=== PATIENT | female | born 1970 | race Caucasian/White ===

== ENCOUNTER 2016-07-11 13:56 | Emergency (ER) | payer OTHER ==
[~2016-07-11] VITALS: Ht 167.6 cm; Wt 69.5 kg
[2016-07-11 14:11] VITALS: BP 142/87; PULSE 77; RESP 16; O2SAT 97
--- NOTE | 2016-07-11 16:12 | ED.REPORT ---
HPI- Female Date of Service July 11, 2016 ED Provider: Bradley Tucker MD Patient is a 45 year old female with a hx of endometriosis, hypothyroid, and fibromyalgia who presents to the ED complaining of vaginal bleeding with "plum sized clots" onset 4 days ago s/p having a benign, 5 cm uterine mass biopsied 12 days ago. She reports that she started her period 4 days ago but that it normally lasts only 2 days. Associated symptoms include intermittent back pain that correlates with the passing of a clot. She denies lightheadedness, fever, vomiting, or any other symptoms. She has been using overnight pads and has been filling them in less than 3 hours. She is scheduled for a hysterectomy August 09. She has been under a lot of stress lately. Nursing Notes Stated Complaint: BLEEDING POST PROCEDURE Chief Complaint: Female Abdominal Pain Nursing Notes Reviewed: Yes Allergies: Coded Allergies: oxycodone (Verified Allergy, Severe, 12/23/08) Sulfa (Sulfonamide Antibiotics) (Verified Allergy, Unknown, 03/29/14) Scheduled Medroxyprogesterone Acetate (Provera) 10 Mg Tablet 10 MG PO DAILY Scheduled PRN Promethazine (Promethazine) 25 Mg Tablet 25 MG PO Q6H PRN PRN For Nausea General Time Seen by MD: 16:11 Chief Complaint Vaginal bleeding... (Moderate) Hx Obtained From: Patient Arrived By: Walk-in Sudden in Onset?: Yes Onset Occurred: 4 days ago Symptom Duration: Since onset Past Medical History Past Medical History endometriosis Hypothyroid fibromyalgia Excessive cyclical bleeding Reports: GERD Past Surgical History thyroidectomy cyst removal from chest. D&C Smoking History Never Smoker Social History Alcohol Use: Denies alcohol use Drug Use: THC Occupation [employer] Instructor Ambulatory Status Independent Review of Systems Constitutional: Denies: Fever GI: Denies: Vomiting Female: Reports: Vaginal bleeding - abnl Musculoskeletal: Reports: Back pain Neurologic: Denies: Lightheaded Complete sys rev & neg: except as marked. Physical Exam Physical Exam Notes: Sitting: BP: 122/70 HR: 60 Standing: BP: 130/70 HR: 65 Initial Vital Signs Vital Signs (First) Date Time Temp Pulse Resp B/P Pulse Ox O2 Delivery O2 Flow Rate FiO2 07/11/16 14:11 36.8 77 16 142/87 97 Room Air Initial VS: Reviewed Head / Eyes: Atraumatic, Normocephalic Neck: Full range of motion Neurologic: Alert, Oriented, Nonfocal Psychiatric: Mood/affect normal, Behavior normal, Normal thought content Female Genitourinary: Exam deferred General/Constitutional: Awake, Alert, Well developed Respiratory / Chest: Breath sounds NL, Breath sounds = bilat, No respiratory distress Cardiovascular: Heart rate NL, Regular rhythm, Heart sounds NL, No gallop, No murmurs, No rubs Abdomen: Soft Tenderness/Guarding/Rebound: Positive: Tender diffuse Skin: Color NL, Warm, Dry Interpretation & Diagnostics Lab Results Interpretation Result Diagram: 07/11/16 1605 Test 07/11/16 16:05 White Blood Count 6.9th/mm3 (3.8-10.1) Red Blood Count 4.18mil/mm3 (3.90-5.20) Hemoglobin 12.5g/dL (12.0-15.6) Hematocrit 36.8% (35.0-46.0) Mean Corpuscular Volume 88.0fL (81-100) Mean Corpuscular Hemoglobin 29.9pg (27.0-35.0) Mean Corpuscular Hemoglobin Concent 34.0% (32.0-37.0) Red Cell Distribution Width 12.0% (12.3-15.4) Platelet Count 241bil/L (150-400) Neutrophils (%) (Auto) 69.3% (40-74) Lymphocytes (%) (Auto) 21.9% (14-46) Monocytes (%) (Auto) 6.5% (4-12) Eosinophils (%) (Auto) 2.2% (0-5) Basophils (%) (Auto) 0.1% (0-3) Hold Reich Top Tube Received (Received) Re-Eval/Medical Decision Re-Evaluation/Progress : Time of Eval: 16:33 Patient Status: Condition unchanged Re-Evaluation/Progress Note: Review discharge instructions. Patient understands and agrees with plan. Patient has no questions at this time. Consultation : Call Returned at: 16:31 Motor Vehicle Technician: Agrees with eval, Agrees with plan Note: Discussed pt case with credit collections rep for pt PCP. Provera 10 mg/ day Counseled Regarding: Diagnosis, Lab results, Need for follow-up, When/why to return to ED Discharge & Departure Impression: Primary Impression: Dysfunctional uterine bleeding Disposition: Home Discharge Condition All VS Reviewed: Yes Condition: Improved Patient Instructions: Dysfunctional Uterine Bleeding (ED) Additional Instructions: Thank you for entrusting us with your care today. Your labs and examination are reassuring. Take Provera, 10 mg a day. Promethazine as needed for nausea. Referrals: Asa Felix DO (PCP) Scribe Attestation Portions of this note were transcribed by Cresencio Aburto. I, Dr. Tucker personally performed the history, physical exam and medical decision-making; I reviewed and confirmed the accuracy of the information in the transcribed note. Signed by: Cresencio Aburto 07/11/16, [id number] copies to: Asa Felix Kirk H MD July 11, 2016 16:12 CRESENCIO ABURTO July 11, 2016 16:18
[2016-07-11 16:27] LABS: BASOPHILS % (AUTO) 0.1 % (0-3); EOSINOPHILS % (AUTO) 2.2 % (0-5); MONOCYTES % (AUTO) 6.5 % (4-12); Mean Corpuscular Hemoglobin 29.9 pg (27.0-35.0); NEUTROPHILS % (AUTO) 69.3 % (40-74); Platelet Count 241 bil/L (150-400)
[2016-07-11] MEDS ORDERED: MEDR10TA PO (16:38)
[2016-07-11] MEDS ORDERED: PROM25TA14 PO (17:56)
[2016-08-08] MEDS ORDERED: HYDR2TAB28 PO (11:08)
[2016-08-08] MEDS ORDERED: RANI150C4 PO (11:08)
[2016-08-08] MEDS ORDERED: IBUP-1827 PO (11:08)
[2016-08-08] MEDS ORDERED: LEVO112T3 PO (11:08)
[2016-08-08] MEDS ORDERED: MEDR10TA9 PO (11:08)
[2016-08-08] MEDS ORDERED: HYDR-3605 PO (11:08)
[2016-08-08] MEDS ORDERED: PROM25TA14 PO (11:08)
[2016-08-08] MEDS ORDERED: DIPH25CA6 PO (11:08)
== END 2016-07-11 17:09 | disposition home or self-care (01) ==
LOC: SED 13:56
DX: N93.8 Other specified abnormal uterine and vaginal bleeding (principal); M54.9 Dorsalgia, unspecified; N80.9 Endometriosis, unspecified; E03.9 Hypothyroidism, unspecified; M79.7 Fibromyalgia; K21.9 Gastro-esophageal reflux disease without esophagitis; Z98.890 Other specified postprocedural states; Z88.5 Allergy status to narcotic agent; Z88.2 Allergy status to sulfonamides

== ENCOUNTER 2016-08-09 07:39 | Day surgery (SDC) | payer OTHER ==
[2016-08-09] VITALS (11 sets, daily range): BP systolic 115–137; BP diastolic 63–79; PULSE 56–65; RESP 12–18; O2SAT 94–100
[~2016-08-09] VITALS: Ht 167.6 cm; Wt 69.1 kg
[~2016-08-09 07:39] MED LIST: CeFAZolin Inj 2 GM in IV Premix 1 EACH IV ONE; DIPH25CA6 PO; HYDR-3605 PO; HYDR2TAB28 PO; IBUP-1827 PO; LEVO112T3 PO; MEDR10TA9 PO; PROM25TA14 PO; RANI150C4 PO
[2016-08-09] MEDS ORDERED: Dexamethasone 4 mg/mL Inj ONE (07:40)
[2016-08-09] MEDS ORDERED: fentaNYL-PF 50 mCg/mL 2 mL Inj ONE (07:40)
[2016-08-09] MEDS ORDERED: Propofol 10,000 mCg/mL 20 mL Inj ONE (07:40)
[2016-08-09] MEDS ORDERED: MetoCLOpramide 5 mg/mL 2 mL Inj ONE (07:40)
[2016-08-09] MEDS ORDERED: Neostigmine 1 mg/mL 10 mL Inj ONE (07:40)
[2016-08-09] MEDS ORDERED: Lidocaine PF 1% 30 mL Inj ONE (07:40)
[2016-08-09] MEDS ORDERED: Esmolol 10,000 mCg/mL 10 mL Inj ONE (07:40)
[2016-08-09] MEDS ORDERED: Glycopyrrolate 0.2 MG/ML 1mL Inj ONE (07:40)
[2016-08-09] MEDS ORDERED: Ondansetron 2 mg/mL 2 mL Inj ONE (07:40)
[2016-08-09] MEDS ORDERED: HYDROmorphone 2 mg/mL Inj ONE (07:40)
[2016-08-09] MEDS: Lactated Ringer's 1,000 ML IV SCH ×2 (07:53→09:16)
[2016-08-09] MEDS ORDERED: LORA10CA PO (08:14)
--- NOTE | 2016-08-09 09:16 | PCM.HPANE ---
Patient Data Date of Service: Aug 09, 2016 Surgeon Admitting Provider: Attending Provider:Ree Ross MD Primary Care Physician:Asa Felix DO Other Provider:Slim Martins Anesthesia Reason for Visit Abnormal Uterine Bleeding Ht/WT & BMI Height (Feet): 5 Height (Inches): 6 Weight (Kilograms): 69.1 Body Mass Index 24.00 Allergies Coded Allergies: oxycodone (Verified Allergy, Severe, 12/23/08) Sulfa (Sulfonamide Antibiotics) (Verified Allergy, Unknown, 03/29/14) Uncoded Allergies: SEASONAL (Allergy, Unknown, 08/08/16) Past Anesthesia History Anesthesia History: Positive for:: Anesthesia Reactions (severe nausea, has awoken during anes, ), Denies:: Abnormal Airway, Difficult Intubation, Fam Anesthesia Reaction, Fam Malignant Hypertherm, Malignant Hyperthermia Diabetes History Hx Diabetes?: No MRSA MRSA: Yes ( ) Medications Hypertension Medication: No Home Meds Incl Beta Brock: No Reported Medications Loratadine (Claritin)10 Mg Vtbmypx21 Mg PO DAILY Ref 0 08/09/16 Levothyroxine (Synthroid)112 Mcg Pohwkw987 Mcg PO DAILY Ref 0 08/08/16 Ranitidine 150 Mg Srlpjdx321 Mg PO BID Ref 0 08/08/16 Promethazine 25 Mg Iijawa01 Mg PO Q4H PRN For Nausea Ref 0 08/08/16 Medroxyprogesterone 10 Mg Ngxngz88 Mg PO DAILY 08/08/16 Ibuprofen 600 Mg Boblmr871 Mg PO QID PRN For Pain Ref 0 08/08/16 HydrOXYzine HCl 10 Mg Zyxeqq97 Mg PO TID PRN For Itching Ref 0 08/08/16 Hydromorphone 2 Mg Tablet2-4 Mg PO Q4H PRN Pain Ref 0 08/08/16 diphenhydrAMINE HCl (Benadryl)25 Mg Gcdvmaz65-16 Mg PO Q4 PRN allergy sx Ref 0 08/08/16 Discontinued Scripts Promethazine 25 Mg Ykbwcs91 Mg PO Q6H PRN For Nausea #25 TABLET Ref 0 Prov:Bradley Tucker MD 07/11/16 Medroxyprogesterone Acetate (Provera)10 Mg Ovlhew66 Mg PO DAILY #30 TABLET Prov:Bradley Tucker MD 07/11/16 History History of ENT Problems?: Yes HEENT History: Positive for:: Sinus Problem (chronic allergies) Denies:: Abnormal Airway Cataracts Difficult Intubation Dysphagia Glaucoma Hearing Problem Denture Type: None Teeth Condition: Within Normal Limits Hx of Heart Problems?: Yes Cardiovascular History: Positive for:: Irregular Heartbeat (palpitations thyroid) Denies:: AICD Abdominal Aortic Aneurism Chest Pain Congestive Heart Failure Coronary Artery Disease Edema Heart Murmur Hypertension Pacemaker Peripheral Vascular Rheumatic Fever Thrombophlebitis Valvular Heart Disease Hx of Respiratory Problem?: Yes Respiratory History: Positive for:: Asthma (as child) Cough (hx bronchitis sep 2015- still coughs occasionally productive) Use of C-PAP Machine Denies:: COPD Emphysema Oxygen Administration Pneumonia Pulmonary Embolism Tuberculosis Use of Inhalers / NEBS Hx Neurologic Problems?: Yes Neurological History: Positive for:: Headaches (2-4 times month - tylenol with caffeine) Denies:: CVA (memory loss post thryoidectomy-attributes ) Dementia Dizziness Multiple Sclerosis Parkinson's Disease Seizures Other Neurological Pertinent: bells palsy- 2011 right sided, resolved. Hx of GI Problems?: Yes Hx of Problems?: No Genitourinary History: Positive for:: Kidney Stones (left renal tube (has had for 15 years) ) Denies:: Urinary Tract Infection Female Hx: Positive for:: Problems with Breasts? (sebaceous cyst- ( center ), breast reduction) Denies:: Currently (neg test) Skin History: Denies:: History Skin Disorders? Pressure Ulcers Hx Musculoskeletal Problems?: Yes Musculoskeletal History: Positive for:: Fibromyalgia Osteoarthritis Denies:: Musculoskeletal Trauma Myasthenia Gravis Systemic Lupus Hx of Psycho/Social Problems?: Yes Psycho Social History: Positive for:: Anxiety Hx Surgeries?: Yes (thyroid, breast redux, laparoscopy) Hx Any Other Health Problems?: Yes Other History: Positive for:: Cancer (skin, cervical, ) Thyroid Disease (thyroidectomy- full) History Blood Transfusions: Positive for:: Accept Blood Products? Denies:: Blood Transfusions Hx Diabetes: No Hx Alcohol Use: NoHx Substance Use: Yes (medical marijuana- inhale, topical and edible- weekly) Smoking Status: Never Smoker Have You Smoked inLast 12 mo: No Stop/Bang Treated for Sleep Apnea?: Yes Do You Have a CPAP Machine?: Yes S-Snoring: Do You Snore Loudly: Yes T-Tired: feel tired, fatigued: Yes O-Obsered: Observed not breath: Yes P-Blood Pressure: treated: No B- Body Mass Index > 35 kg/m2: No A- Age over 50: No N- Neck Large Circumference: No G- Gender Male: No CASTRO Total Score: 3 CASTRO Risk Assessment: High Risk, =/>3 Yes CASTRO Category 4 OutPt Procedure: Yes Risk Assessment Category Category 1A: Patient has history of documented sleep apnea, and HAS NOT received any narcotic, sedative or anesthesia administration during this stay. Category 1B: Patient has history of documented sleep apnea, and HAS received any narcotic , sedative or anesthesia administration during this stay Category 2: Patient has SUSPECTED Obstructive Sleep Apnea, and HAS received any narcotic , sedative or anesthesia administration during this stay. Category 3: Patient has SUSPECTED Obstructive Sleep Apnea and HAS NOT received narcotic, sedative or anesthesia administration during this stay. Category 4: Outpatient in Procedural Areas with known sleep apnea or who screen positive for High Risk via the STOP/BANG questionnaire. Exam Exam Vital Signs Vital Signs Date Time Temp Pulse Resp B/P Pulse Ox O2 Delivery O2 Flow Rate FiO2 08/09/16 08:20 CPAP/BIPAP 08/09/16 08:04 36.8 56 17 116/72 99 Room Air General Appearance: Alert, Oriented X3, Cooperative, No Acute Distress HEENT/AIRWAY: MP 2, Neck Movement (from), Mouth Opening (3 fb), Other (good mandibular protrusion, tmd 3 fb) Lungs: Clear to Auscultation, Normal Air Movement Heart: Exam Unremarkable, Regular Rate/Rhythm, No Murmurs/Rubs/Gallops Meds/Labs/Diagnostics Admission Meds Current Medications Lactated Ringer's (Lr) 1,000 ml @ 120 mls/hr Q8H20M IV Last administered on 07:53; Start 08/09/16 at 05:00; Stop 08/09/16 at 13:19 Gabapentin (Neurontin) 600 mg PREOP ONCE PO Last administered on 08/09/16 08: 07; Start 08/09/16 at 06:00; Stop 08/09/16 at 06:01; Status DC Celecoxib (CeleBREX) 200 mg PREOP ONCE PO Last administered on 08/09/16 08:07 ; Start 08/09/16 at 06:00; Stop 08/09/16 at 06:01; Status DC Scopolamine (Transderm-Scop Patch) 1.5 mg ONCE ONCE TOPICAL Last administered on 08/09/16 08:04; Start 08/09/16 at 05:00; Stop 08/09/16 at 05:01; Status DC Acetaminophen (Tylenol) 1,000 mg PREOP ONCE PO Last administered on 08/09/16 08:07; Start 08/09/16 at 06:00; Stop 08/09/16 at 06:01; Status DC Plan Impression Patient chart reviewed, patient interviewed and anesthestic plan with risks, benefits, and alternatives discussed, and informed consent obtained. NPO per Anesth. Guidelines: Yes ASA Physical Status: ASA2 Mod Systemic Disease Anesthetic Plan: GA Bene/Risks/Altern/Consents: Yes HP Complete Prior to Induction: Yes Marc Dacosta MD Aug 09, 2016 09:16
[2016-08-09] MEDS ORDERED: Lactated Ringer's 1,000 ML IV SCH (09:45)
[2016-08-09] MEDS ORDERED: Atropine 0.4 mg/mL Inj IVPUSH PRN (09:45)
[2016-08-09] MEDS ORDERED: hydrOXYzine Inj 50 MG/1 mL SDV IM PRN (09:45)
[2016-08-09] MEDS ORDERED: Phenylephrine 10,000 mCg/mL Inj IVPUSH PRN (09:45)
[2016-08-09] MEDS ORDERED: EPHEDrine Sulfate 50 mg/mL Inj IM PRN (09:45)
[2016-08-09] MEDS ORDERED: Ondansetron 2 mg/mL 2 mL Inj IVPUSH PRN ×2 (09:45→12:20)
[2016-08-09] MEDS ORDERED: fentaNYL-PF 50 mCg/mL 2 mL Inj IVPUSH PRN (09:45)
[2016-08-09] MEDS ORDERED: Albuterol 2.5 mg/3 mL Inhalation Solution NEB PRN (09:45)
[2016-08-09] MEDS ORDERED: Lactated Ringer's 500 ML IV PRN (09:45)
[2016-08-09] MEDS ORDERED: Labetalol 5 mg/mL 4 mL Inj IV PRN (09:45)
[2016-08-09] MEDS ORDERED: EPHEDrine Sulfate 50 mg/mL Inj IVPUSH PRN (09:45)
[2016-08-09] MEDS ORDERED: HYDROmorphone 1 mg/mL Inj IVPUSH PRN ×2 (09:45→12:20)
[2016-08-09] MEDS ORDERED: Bupivacaine-MPF 0.5% W/EPI 30 mL Inj INJ ONE (10:10)
[2016-08-09] MEDS ORDERED: diphenhydrAMINE 25 mg Capsule PO PRN (12:20)
[2016-08-09] MEDS ORDERED: MetoCLOpramide 5 mg/mL 2 mL Inj IVPUSH PRN (12:20)
--- NOTE | 2016-08-09 12:24 | PCM.DIGYN ---
Surgical Discharge Instruction Dates of Hospitalization Date of Hospital Admission 08/09/2016 Providers Admitting Physician: Primary Care Physician: Asa Felix DO Attending Physician: Ree Ross MD Diagnosis at Time of Discharge Diagnosis at time of discharge 1. Uterine Fibroids. 2. Abnormal uterine bleeding Post-operative diagnosis 1. Uterine Fibroids. 2. Abnormal uterine bleeding Problems: Diet Discharge Diet: No restrictions Activity Discharge Activity-General: Try not to overdue, Be up and about, Balance rest and activity, No lifting >10 pounds for 4-6 weeks, No driving while taking narcotic, Other (nothing per vagina for 8 weeks, no sex for 8 weeks) Dressing and Incisional Care Hygiene: May shower, Wash incision with soap & water, DO NOT soak incision under water, NO bathtub, hot tub or whirlpool (for two weeks) Follow Up Plan Follow-up Provider (F9): Ree Ross MD Follow-up appointment: Weeks (2) Call your provider for: Fever, Chills, Shortness of breath, Drainage at incision, Heavy vaginal bleeding, Increasing pain Ree Ross MD Aug 09, 2016 12:24
--- NOTE | 2016-08-09 13:42 | OP ---
[address] [address] OPERATIVE REPORT PATIENT: PANTERA PEREZ : 1970 MR#: [id number] ADMIT: 08/09/2016 JOB ID: [id number] DATE OF SURGERY: 08/09/2016 PREOPERATIVE DIAGNOSIS(ES): 1. Abnormal uterine bleeding. 2. Uterine fibroids. POSTOPERATIVE DIAGNOSIS(ES): 1. Abnormal uterine bleeding. 2. Uterine fibroids. PROCEDURE PERFORMED: 1. Total laparoscopic hysterectomy with bilateral salpingectomy. 2. Cystoscopy of the bladder. SURGEON: Ree Ross M.D. WORD PROCESSOR: Bill Whittaker M.D. ANESTHESIA: General. COMPLICATIONS: None. PATHOLOGY SENT: Uterus with bilateral fallopian tubes. FINDINGS AT THE TIME OF SURGERY: Normal-appearing vagina and cervix. Intraoperative findings showing a slightly enlarged round uterus. The ovaries were normal appearance bilaterally. There was no evidence of any endometriosis or pelvic adhesion disease. Cystoscopy findings showing normal-appearing bladder. There was bilateral spillage of urine from both ureters at the end of the procedure. There were no defects or sutures in the bladder. DESCRIPTION OF PROCEDURE: The patient was taken to the operating room, where her general anesthesia was obtained without difficulty. She was placed in the lithotomy position in the [facility] and prepared and draped in a normal sterile fashion. A bivalve speculum was inserted into the patient's vagina and the cervix was identified and grasped with a single-tooth tenaculum. A large VCare uterine manipulator was inserted without difficulty. The speculum and tenaculum were removed and the Cotton catheter was placed. Our attention was then turned to the patient's abdomen, where the umbilicus was injected with 0.5% Marcaine with epinephrine and a Veress needle was inserted at the base of patient's umbilicus into the patient's peritoneal cavity. Water drop test needle aspirate were negative and confirmatory. A pneumoperitoneum was obtained with CO2 gas to 15 mmHg. A 5 mm skin incision was made with a scalpel at the base of the umbilicus and a 5 mm blunt trocar inserted using the Visiport function of the device. Intraperitoneal placement was confirmed with the laparoscope. The above noted findings were appreciated. At this point, a left and right lower quadrant port site were marked off and injected with 0.5% Marcaine with epinephrine. 5 mm blunt trocars were inserted under direct visualization in the left and right lower quadrant. The patient was then placed into Trendelenburg and a total laparoscopic hysterectomy was performed using the Thunderbeat cautery device. The fallopian tubes were excised bilaterally with the Thunderbeat cautery device and sent separately. The utero-ovarian ligament was then taken down bilaterally with the Thunderbeat cautery device. The round ligament was then transected bilaterally and a bladder flap was created. The uterine arteries were skeletonized bilaterally with the Thunderbeat cautery device sealed and transected. The VCare cuff was then identified. The vagina was entered sharply with the Thunderbeat cautery device and this incision was carried circumferentially freeing the uterus from the vagina. Our attention was then turned vaginally where the uterus was removed through the patient's vagina. This required the uterus to be bivalved in order to remove it through the vagina. The uterus was sent off to Pathology. The vaginal cuff was then repaired laparoscopically with a V-Loc suture in a running fashion. Good hemostasis was assured. The pelvis was then irrigated with copious amounts of normal saline and the pedicles were noted to be hemostatic at low pressures. All instruments were then removed from the patient's peritoneal cavity and the pneumoperitoneum was released. The skin incisions will all be approximated with 4-0 Monocryl in a subcuticular fashion. Dermabond applied. The cystoscopy of the bladder was performed with a 70 degree cystoscope. There was bilateral spillage of urine from both ureters and the bladder was noted to be free of any defects. The cystoscope was removed and the bladder was drained. This completed our procedure. All lap, instrument, and needle counts correct x2 at the end of the procedure. The patient was taken to the recovery room awake and in good condition.
--- NOTE | 2016-08-09 17:13 | PCM.ANEP1 ---
Post Anesthesia PACU Phase 1 Assessment Date of Service: Aug 09, 2016 Vital Signs Vital Signs Date Time Temp Pulse Resp B/P Pulse Ox O2 Delivery O2 Flow Rate FiO2 08/09/16 13:05 36.8 61 15 115/66 94 Room Air 08/09/16 13:00 62 12 115/63 99 Room Air 08/09/16 12:55 57 17 115/68 95 Room Air 08/09/16 12:45 59 16 134/79 98 Room Air 08/09/16 12:30 36.9 60 16 124/68 99 Room Air 08/09/16 12:25 58 16 125/72 100 Simple Mask 8 08/09/16 12:20 61 14 115/75 100 Simple Mask 8 08/09/16 12:15 60 16 119/75 100 Simple Mask 8 08/09/16 12:12 36.9 65 12 137/74 100 Simple Mask 8 Anesthetic Administered: GA Level of Alertness: Awake, talking GRUBER's with Equal Strength: Yes Pain: No Nausea or Vomiting: No CV Function & Hydration Stable: Yes Airway Device: none Oxygen Delivery: Room Air Lungs: Clear to Auscultation, Normal Air Movement Dermatome Level: Full Sensation PACU Phase 2 Assessment Complications: No Follow up Care: No Patient Instructions Provided: N/A Marc Dacosta MD Aug 09, 2016 17:13
--- NOTE | 2016-08-11 14:18 | PATH ---
SURGICAL PATHOLOGY Attending Physician:Ree Ross, CASE STATUS: Signed Out PATIENT NAME: PANTERA PEREZ PID: [id number] : 1970 DATE COLLECTED:08/09/2016 00:00 SPECIMEN: 1: Fallopian Tube, Biopsy 2: Fallopian Tube, Biopsy 3: Uterus +/- tubes/ovaries, except neoplastic, prolapse CLINICAL HISTORY: ABNORMAL UTERINE BLEEDING 1). LEFT FALLOPIAN TUBE 2). RIGHT FALLOPIAN TUBE 3). UTERUS FINAL DIAGNOSIS: 1. 2. LEFT AND RIGHT FALLOPIAN TUBES: NO SIGNIFICANT PATHOLOGIC CHANGE. 3.UTERUS: INACTIVE-APPEARING ENDOMETRIUM, NEGATIVE FOR ATYPIA. LEIOMYOMA, MYOMETRIUM. ICD10 D25.9 GROSS DESCRIPTION: The specimens are received in formalin, labeled with the patient's name, and sublabeled as the following: (1) left fallopian tube; (2) right fallopian tube; (3) uterus. (1) The specimen consists of a fimbriated fallopian tube (length-5.5 cm, diameter-0.5 cm). The serosa is castro-purple smooth and shiny. The lumen is salmeron and unremarkable. No nodules, masses or lesions are identified. Section code: (1A) fallopian tube, serially sectioned, financial foundations representative; (1B) fimbria, bivalved, entirely submitted. (2) The specimen consists of a fimbriated fallopian tube (length-6.6 cm, diameter-0.5 cm). The serosa is castro-purple smooth and shiny. The lumen is salmeron and unremarkable. No nodules, masses or lesions are identified. Section code: (2A) fallopian tube, serially sectioned, financial foundations representative; (2B) fimbria, bivalved, entirely submitted. (3) The consists of an uterus (292 g, 6.8 cm AP, 12.5 cm SI, 10.2 cm ML). The ovaries and fallopian tubes are absent. The cervix and lower uterine body are longitudinally sliced. The specimen cannot be oriented as to anterior and posterior. The cervix (2.8 cm AP, 3.4 cm ML) has a transverse os and patent endocervical canal. The endometrium (average thickness-0.1 cm) is salmeron-dee smooth and flat. The myometrium (thickness-2.2 cm) is salmeron and contains a solid firm white whorled homogenous well-circumscribed mass (7.1 x 5.5 x 4.7 cm). The serosa is salmeron smooth and shiny. Section code: (3A) cervix; (3B) cervix, opposite side; (3D-3E) endomyometrium; (3F-3H) endomyometrium, opposite side. 08/10/16 JM MICRO DESCRIPTION: See diagnosis. ICD-9 CODES: CPT CODES: 1: 38240 2: 83033 3: 75906 Electronically Signed Out Dwain Walls MD [facility] [address], [place] [address] Technical component performed at [facility], [facility] [address], [place], [address]
== END 2016-08-09 23:59 | disposition home or self-care (01) ==
LOC: SAS 07:39
PROVIDERS: ATTEND Obstetrics & Gynecology
DX: N93.9 Abnormal uterine and vaginal bleeding, unspecified (principal); D25.9 Leiomyoma of uterus, unspecified; E78.5 Hyperlipidemia, unspecified; E03.9 Hypothyroidism, unspecified; K21.9 Gastro-esophageal reflux disease without esophagitis; K31.7 Polyp of stomach and duodenum; K58.9 Irritable bowel syndrome, unspecified; M79.7 Fibromyalgia; G25.81 Restless legs syndrome; G47.33 Obstructive sleep apnea (adult) (pediatric); M19.90 Unspecified osteoarthritis, unspecified site; F41.9 Anxiety disorder, unspecified; F12.90 Cannabis use, unspecified, uncomplicated; Z85.828 Personal history of other malignant neoplasm of skin; Z86.14 Personal history of Methicillin resistant Staphylococcus aureus infection; Z87.442 Personal history of urinary calculi
CPT/HCPCS: 58571; 88305; 88307; J0690; J1100; J1170; J1885; J2250; J2405; J2710; J2765; J3010; J7120